=== PATIENT | female | born 1975 | race Caucasian/White ===

== ENCOUNTER 2017-08-05 05:17 | Emergency (ER) | payer SELFPAY ==
[~2017-08-05] VITALS: Ht 165.1 cm; Wt 90.7 kg
[~2017-08-05 05:17] MED LIST: ACHD5005 PO; ALPR1T PO; CAPT25TA3 PO; CYCL10TA9 PO; HCT25T PO; HYDR1TAB PO; LISI10TA PO; LVT.025T PO; MULT-305 PO; NF-SYM625 PO; OXYC-272 PO
--- NOTE | 2017-08-05 05:53 | ED Psychosocial ---
General Chief Complaint: Psych/Social Disorder Stated Complaint: VOMITING,CORONEL,ANXIETY,RT HIP PAIN,THYROID & BLOOD MT Source: patient Exam Limitations: no limitations History of Present Illness Time seen by provider: 05:35 Initial Comments Here with report of wanting help regarding her addiction problems including ice and marijuana. She reports that she had been in rehabilitation up until and then left 3 haven't moved in with her son. There she found out that he was also using drugs and she began using drugs again. He apparently kicked her out this morning. She arrives by POV without a coat or shoes asking for assistance. She states that she is out of her meds and has not taken her blood pressure or thyroid medicine since . Normally seen at [facility]. She also complains of right hip pain after doing a high kick when she was high and drunk a few months ago. She reports persistent pain since to her right hip and wants to make sure that that is okay. She complains of headache that she states is from her anxiety and crying. Timing/Duration: week, getting worse Severity: moderate, severe Associated Symptoms: anxiety Allergies and Home Medications Allergies Coded Allergies: No Known Drug Allergies (Unverified , 04/18/11) Home Medications Alprazolam 1 Mg Tablet, 1 MG PO QID, (Reported) Alprazolam 1 Mg Tablet, 1 TAB PO TID PRN, #21 Ref 0 Prescribed by: ZOË TELLO on 04/18/111809 Captopril 25 Mg Tablet, 25 MG PO BID, (Reported) Cyclobenzaprine Hcl 10 Mg Tablet, 10 MG PO BID, (Reported) Hydrochlorothiazide 25 Mg Tablet, 25 MG PO DAILY, (Reported) Hydrocodone Bit/Acetaminophen 1 Each Tablet, 1-2 EACH PO Q6H PRN, #48 Ref 0 Prescribed by: ZOË TELLO on 04/18/111809 Hydrocodone Bit/Acetaminophen 1 Each Tablet, 1-2 EACH PO Q4HR PRN, #10 Ref 0 Prescribed by: MICHELLE SÁNCHEZ on 06/24/112219 Levothyroxine Sodium 25 Mcg Tablet, 25 MCG PO DAILY, (Reported) Lisinopril 10 Mg Tablet, 10 MG PO BID, (Reported) Multivits W-Ca,Fe,Other Min 1 Each Tablet, 1 EACH PO DAILY, (Reported) Olanzapine/Fluoxetine Hcl 1 Ea Cap, 1 EA PO DAILY, (Reported) In the evening Oxycodone Hcl/Acetaminophen 1 Tab Tablet, 1 TAB PO QID, (Reported) Constitutional: see HPI, No chills, No fever EENTM: no symptoms reported Respiratory: no symptoms reported Cardiovascular: no symptoms reported Gastrointestinal: no symptoms reported Musculoskeletal: see HPI, joint pain, No muscle pain Psychiatric/Neurological: See HPI, Anxiety, Emotional Problems, Headache Past Oniktju-Hbjwyq-Fwcrgc Hx Patient Social History Alcohol Use: Occasionally Uses Recreational Drug Use: Yes Smoking Status: Current Everyday Smoker Type Used: Cigarettes Recent Foreign Travel: No Contact w/Someone Who Travel: No Surgeries History of Surgeries: Yes Surgeries: Orthopedic, Thyroidectomy Cardiovascular History of Cardiac Disorders: Yes Cardiac Disorders: Hypertension Endocrine History of Endocrine Disorders: Yes Endocrine Disorders: Hypothyroidsim Psychosocial History of Psychiatric Problem: Yes Behavioral Health Disorders: Sleep Difficulties, Anxiety, Depression Reviewed Nursing Assessment Reviewed/Agree w Nursing PMH: Yes Physical Exam Vital Signs Vital Sign - Last 12Hours 08/05/17 05:28 Temp 98.4 Pulse 105 Resp 20 B/P (MAP) 188/100 (129) Pulse Ox 98 O2 Delivery Room Air Capillary Refill : General Appearance: WD/WN, mild distress (anxious and crying) HEENT: PERRL/EOMI, pharynx normal Neck: full range of motion, supple Respiratory: lungs clear, normal breath sounds Cardiovascular: regular rate, rhythm, no murmur Gastrointestinal: non tender, soft Extremities: non-tender, normal inspection, other (normal gait) Neurologic/Psychiatric: alert, oriented x 3 Appearance/Memory: disheveled, other (crying) Behavior/Eye Contact: cooperative, good eye contact, normal speech Thoughts/Hallucinations: normal thought pattern, no apparent hallucination Skin: normal color, warm/dry Progress/Results/Core Measures Results/Orders My Orders Orders - ZOË TELLO MD Pelvis With Right Hip 2-3views (08/05/17 05:47) Lisinopril Tablet (Zestril Tablet) (08/05/17 06:00) Vital Signs/I&O Vital Sign - Last 12Hours 08/05/17 05:28 Temp 98.4 Pulse 105 Resp 20 B/P (MAP) 188/100 (129) Pulse Ox 98 O2 Delivery Room Air Progress Note : Progress Note Seen and evaluated. X-ray of right hip and pelvis ordered. Given information on [facility] addiction treatment services as well as [facility]. Patient stated that she would go there this morning. Lisinopril 10 mg by mouth given. Monitor patient. 0615: No acute fractures or other findings on x-ray. I did discuss the case with Dr. Carolyn Swann. She agrees that the addiction treatment services is perfectly suited to help this patient and is willing to help. Recommended calling at [phone] for same day appointment. I did pass this information along to the patient who was appreciative and states that she will make the call. Further prescriptions to be written by the clinic. Discharged home with return precautions. Patient verbalize understanding instructions and agreement with plan. Diagnostic Imaging Diagonstic Imaging: Xray Plain Films/CT/US/NM/MRI: pelvis, hip Comments Three-view x-ray right hip and pelvis shows no acute fracture or other abnormality. Departure Impression Impression: Primary Impression: Anxiety Additional Impressions: Drug abuse and dependence Right hip pain Disposition: 01 HOME, SELF-CARE Condition: Stable Departure-Patient Inst. Decision time for Depature: 06:20 Referrals: NO,LOCAL PHYSICIAN (PCP/Family) Primary Care Physician Patient Instructions: ALCOHOL AND SUBSTANCE ABUSE, Anxiety, Adult (DC), Hip Pain (DC) Add. Discharge Instructions: All discharge instructions reviewed with patient and/or family. Voiced understanding. Call the [facility] at the number given for same day appointment in the addiction treatment services. They are ready and willing to help you and I highly encouraged and asked that you make that call and go to the clinic today. Return for other concerns as needed. Copy Copies To 1: CAROLYN SWANN MD, TIMOTHY D MD Aug 05, 2017 05:53
[2017-08-05] MEDS: lisINopril 10 MG (PRINIVIL) TAB PO ONE (06:20)
[2017-08-05 06:33] VITALS: BP 188/100
--- NOTE | 2017-08-05 08:02 | Diagnostic Imaging Report ---
INDICATION: Right hip pain COMPARISON: None. FINDINGS: AP view of the pelvis and 2 dedicated radiographic views of the right hip were obtained. Postsurgical changes of previous lumbosacral fusion are noted. There is no fracture, dislocation, bone destruction, or radiopaque foreign body. The visualized pelvic osseous structures and the SI joints demonstrate no acute fracture or dislocation. There is no bone destruction or radiopaque foreign body. The surrounding soft tissue structures are unremarkable. IMPRESSION: 1. Unremarkable radiographic exam of the pelvis and right hip. Dictated by: Dictated on workstation # [id number]
== END 2017-08-05 06:33 | disposition home or self-care (01) ==
LOC: EDUNIT# 05:17 → ER 05:22
DX: F41.9 Anxiety disorder, unspecified (principal); F15.20 Other stimulant dependence, uncomplicated; M25.551 Pain in right hip; I10 Essential (primary) hypertension; E03.9 Hypothyroidism, unspecified; F32.9 Major depressive disorder, single episode, unspecified; F17.210 Nicotine dependence, cigarettes, uncomplicated; Z90.89 Acquired absence of other organs
CPT/HCPCS: 99283

== ENCOUNTER 2023-02-02 11:33 | Emergency (ER) | payer OTHER ==
[2023-02-02] MEDS ORDERED: NS IV 1000 ML 1,000 ML IV STA ×2 (11:39→12:56)
--- NOTE | 2023-02-02 11:43 | ED General ---
General Chief Complaint: General Problems/Pain Stated Complaint: DIZZINESS Nursing Triage Note: PT TO RM 2 BY EMS WITH CC OF DIZZINESS, LH, BODYACHES, VISIOIN CHANGES, AND CORONEL SINCE THIS AM AT WORK. PT STATES HAS BEEN SICK. Source of Information: Patient Exam Limitations: No Limitations (PAULA BILL) History of Present Illness Date Seen by Provider: Feb 02, 2023 Time Seen by Provider: 11:41 Initial Comments Patient is a 48-year-old female who presents the ED by EMS for multiple complaints. Body aches, chills, weakness, dizziness, lightheadedness since last . She reports feeling feverish. She states she gets dizzy with walking as well as lightheaded. Bilateral ear ringing. Patient states today she was at work when she felt like she was going to pass out. Nausea without vomiting. Few episodes of diarrhea. She called EMS at that time. She works at [employer]. She also reports a frontal headache that started today described as pressure. Blurry vision since this morning. Denies of any unilateral weakness or sensory changes. She states she does feel weak throughout. Denies any specific chest pain, shortness of breath, cough. She has been having some intermittent right- sided abdominal pain over the past 3 to 4 days. No current pain at this time. No pain with urination. Denies history of coronary artery disease, CHF, asthma, diabetes, hypertension. She denies of any neck pain, hearing loss (PAULA BILL) Allergies and Home Medications Allergies Coded Allergies: No Known Drug Allergies (Unverified , 04/18/11) Patient Home Medication List Home Medication List Reviewed: Yes (PAULA BILL) Alprazolam (Xanax) 1 Mg Tablet, 1 MG PO QID, (Reported) Entered as Reported by: LIANA PATINO on 04/18/11 1444 Alprazolam (Xanax) 1 Mg Tablet, 1 TAB PO TID PRN Prescribed by: ZOË TELLO on 04/18/111809 Captopril (Capoten) 25 Mg Tablet, 25 MG PO BID, (Reported) Entered as Reported by: LIANA PATINO on 04/18/11 1444 Cyclobenzaprine Hcl (Cyclobenzaprine Hcl) 10 Mg Tablet, 10 MG PO BID, (Reported) Entered as Reported by: LIANA PATINO on 04/18/11 144 Hydrochlorothiazide (Hydrochlorothiazide) 25 Mg Tablet, 25 MG PO DAILY, (Reported) Entered as Reported by: LIANA PATINO on 04/18/11 144 Hydrocodone Bit/Acetaminophen (Lortab 5 Mg Tablet) 1 Each Tablet, 1-2 EACH PO Q6H PRN Prescribed by: ZOË TELLO on 04/18/11 1810 Hydrocodone Bit/Acetaminophen (Vicodin 5-500 Tablet) 1 Each Tablet, 1-2 EACH PO Q4HR PRN Prescribed by: MICHELLE SÁNCHEZ on 06/24/11 2220 Levothyroxine Sodium (Levothyroxine 25 Mcg Tab) 25 Mcg Tablet, 25 MCG PO DAILY, (Reported) Entered as Reported by: LIANA PATINO on 04/18/11 144 Lisinopril (Zestril) 10 Mg Tablet, 10 MG PO BID, (Reported) Entered as Reported by: LIANA PATINO on 04/18/11 144 Multivits W-Ca,Fe,Other Min (Women's Daily Multivitamin) 1 Each Tablet, 1 EACH PO DAILY, (Reported) Entered as Reported by: LIANA PATINO on 04/18/11 144 Olanzapine/Fluoxetine Hcl (Symbyax 01/31 Caps) 1 Ea Cap, 1 EA PO DAILY, (Repo rted) Entered as Reported by: LIANA PATINO on 04/18/111443 Ondansetron (Ondansetron Odt) 4 Mg Tab.rapdis, 4 MG SL Q4H PRN for NAUSEA/VOMITING Prescribed by: SERGIO SILVERIO on 02/02/23 1405 Oxycodone Hcl/Acetaminophen (Percocet 10-325 Mg Tablet) 1 Tab Tablet, 1 TAB PO QID, (Reported) Entered as Reported by: LIANA PATINO on 04/18/11 144 Review of Systems Review of Systems Constitutional: chills; No diaphoresis; dizziness, fever, malaise, weakness EENTM: blurred vision; No hearing loss Respiratory: No cough Cardiovascular: No chest pain Gastrointestinal: abdominal pain; No diarrhea, No nausea, No vomiting Genitourinary: No decreased output, No discharge, No dysuria, No frequency Musculoskeletal: No back pain, No joint pain Skin: No change in color, No change in hair/nails (PAULA BILL) All Other Systems Reviewed Negative Unless Noted: Yes (PAULA BILL) Past Fschkjp-Xffvdo-Bqyfte Hx Patient Social History Tobacco Use?: Yes Substance use?: No Alcohol Use?: No Pt feels they are or have been: No (PAULA BILL) Immunizations Up To Date Influenza Vaccine Up-to-Date: No; Not Current (PAULA BILL) Past Medical History Surgeries: Yes Orthopedic, Thyroidectomy Cardiac: Yes Hypertension Endocrine: Yes Hypothyroidsim Psychosocial: Yes Sleep Difficulties, Anxiety, Depression (PAULA BILL) Physical Exam Vital Signs Vital Signs - First Documented 02/02/23 11:33 Temp 35.6 Pulse 95 Resp 18 B/P (MAP) 97/69 (78) Pulse Ox 97 O2 Delivery Room Air (MYRIAM MARADIAGA MD) Vital Signs Capillary Refill : Less Than 3 Seconds (PAULA BILL) Height, Weight, BMI Height: 5'5.00" Weight: 200lbs. 0oz. 90.799856aq; BMI Method:Stated General Appearance: No Apparent Distress, WD/WN Eyes: Bilateral Eye Normal Inspection, Bilateral Eye PERRL, Bilateral Eye EOMI HEENT: PERRL/EOMI, TMs Normal, Normal ENT Inspection, Pharynx Normal Neck: Full Range of Motion, Normal Inspection, Non Tender, Supple Respiratory: Chest Non Tender, Lungs Clear, Normal Breath Sounds, No Accessory Muscle Use, No Respiratory Distress Cardiovascular: Regular Rate, Rhythm, No Edema, No Gallop, No JVD, No Murmur Gastrointestinal: Normal Bowel Sounds, No Organomegaly, No Pulsatile Mass, Non Tender Back: Normal Inspection, No CVA Tenderness, No Vertebral Tenderness Extremity: Normal Capillary Refill, Normal Inspection, Normal Range of Motion, Non Tender Neurologic/Psychiatric: Alert, Oriented x3, No Motor/Sensory Deficits, Normal Mood/Affect Skin: Normal Color, Warm/Dry (PAULA BILL) Progress/Results/Core Measures Suspected Sepsis SIRS Temperature: Pulse: 95 Respiratory Rate: 18 Laboratory Tests 02/02/23 11:45: White Blood Count 11.2H Blood Pressure 97 /69 Mean: 78 Laboratory Tests 02/02/23 11:45: Creatinine 1.57H, Platelet Count 464H, Total Bilirubin 0.4 (PAULA BILL) Results/Orders Lab Results Laboratory Tests Test 02/02/23 11:45 02/02/23 11:50 Range/Units White Blood Count 11.2 H 4.3-11.0 10^3/uL Red Blood Count 4.96 3.80-5.11 10^6/uL Hemoglobin 14.9 11.5-16.0 g/dL Hematocrit 46 35-52 % Mean Corpuscular Volume 92 80-99 fL Mean Corpuscular Hemoglobin 30 25-34 pg Mean Corpuscular Hemoglobin Concent 33 32-36 g/dL Red Cell Distribution Width 11.9 10.0-14.5 % Platelet Count 464 H 130-400 10^3/uL Mean Platelet Volume 9.9 9.0-12.2 fL Immature Granulocyte % (Auto) 0 % Neutrophils (%) (Auto) 78 H 42-75 % Lymphocytes (%) (Auto) 15 12-44 % Monocytes (%) (Auto) 5 0-12 % Eosinophils (%) (Auto) 1 0-10 % Basophils (%) (Auto) 1 0-10 % Neutrophils # (Auto) 8.7 H 1.8-7.8 10^3/uL Lymphocytes # (Auto) 1.7 1.0-4.0 10^3/uL Monocytes # (Auto) 0.6 0.0-1.0 10^3/uL Eosinophils # (Auto) 0.1 0.0-0.3 10^3/uL Basophils # (Auto) 0.1 0.0-0.1 10^3/uL Immature Granulocyte # (Auto) 0.1 0.0-0.1 10^3/uL Sodium Level 139 135-145 MMOL/L Potassium Level 3.5 L 3.6-5.0 MMOL/L Chloride Level 100 98-107 MMOL/L Carbon Dioxide Level 25 21-32 MMOL/L Anion Gap 14 5-14 MMOL/L Blood Urea Nitrogen 17 7-18 MG/DL Creatinine 1.57 H 0.60-1.30 MG/DL Estimat Glomerular Filtration Rate 40 BUN/Creatinine Ratio 11 Glucose Level 94 70-105 MG/DL Calcium Level 9.3 8.5-10.1 MG/DL Corrected Calcium 9.0 8.5-10.1 MG/DL Magnesium Level 2.2 1.6-2.4 MG/DL Total Bilirubin 0.4 0.1-1.0 MG/DL Aspartate Amino Transf (AST/SGOT) 20 5-34 U/L Alanine Aminotransferase (ALT/SGPT) 14 0-55 U/L Alkaline Phosphatase 84 40-136 U/L Troponin I < 0.028 <0.028 NG/ML Total Protein 7.7 6.4-8.2 GM/DL Albumin 4.4 3.2-4.5 GM/DL Lipase 20 8-78 U/L Influenza Type A (RT-PCR) Not Detected Not Detecte Influenza Type B (RT-PCR) Not Detected Not Detecte SARS-CoV-2 RNA (RT-PCR) Not Detected Not Detecte Urine Color YELLOW Urine Clarity CLEAR Urine pH 5.5 5-9 Urine Specific [place] >=1.030 1.016-1.022 Urine Protein 1+ H NEGATIVE Urine Glucose (UA) NEGATIVE NEGATIVE Urine Ketones TRACE H NEGATIVE Urine Nitrite NEGATIVE NEGATIVE Urine Bilirubin 1+ H NEGATIVE Urine Urobilinogen 1.0 < = 1.0 MG/DL Urine Leukocyte Esterase TRACE H NEGATIVE Urine RBC (Auto) NEGATIVE NEGATIVE Urine RBC NONE /HPF Urine WBC 2-5 /HPF Urine Squamous Epithelial Cells 2-5 /HPF Urine Crystals PRESENT H /LPF Urine Amorphous Sediment RARE JEFFREY URATES H /LPF Urine Bacteria FEW H /HPF Urine Casts NONE /LPF Urine Mucus NEGATIVE /LPF Urine Culture Indicated YES (MYRIAM MARADIAGA MD) Medications Given in ED Current Medications Medications Dose Ordered Sig/Kamla Route Start Time Stop Time Status Last Admin Dose Admin Ketorolac Tromethamine 30 mg ONCE ONCE IVP 02/02/23 13:45 02/02/23 13:46 DC 02/02/23 13:41 30 MG Ondansetron HCl 4 mg ONCE ONCE IVP 02/02/23 11:45 02/02/23 11:46 DC 02/02/23 11:51 4 MG (MYRIAM MARADIAGA MD) Vital Signs/I&O 02/02/23 02/02/23 02/02/23 11:33 14:00 14:22 Temp 35.6 Pulse 95 72 75 74 84 Resp 18 18 B/P (MAP) 97/69 (78) 113/74 (87) 117/79 117/72 (87) 115/78 (90) Pulse Ox 97 96 O2 Delivery Room Air Room Air (MYRIAM MARADIAGA MD) Vital Signs/I&O Capillary Refill : Less Than 3 Seconds (PAULA BILL) Blood Pressure Mean: 78 ECG Comment Sinus rhythm, 89 bpm, QRS duration 85 MS, QTc 428 MS. (PAULA BILL) Departure Communication (PCP) Reviewed previous ER visits, H&P, lab testing. Differential diagnosis of viral syndrome, vertigo, arrhythmia, stroke. Patient on arrival complaining of lightheadedness and dizziness, blurry vision and flulike symptoms. She was hypotensive blood pressure in the 90s systolic. Concerning for dehydration. Patient was started on a liter of fluid. EKG, general lab work, orthostatics, CT scan of the head. CT scan of the head was negative for bleed, mass. EKG showed normal sinus rhythm. She was afebrile. She had no meningeal signs. CBC showed white blood count 11.2. Creatinine of 1.57 GFR 40. Concerning for acute kidney insufficiency secondary to dehydration. She did reports some diarrhea. No vomiting. She did receive Zofran for nausea. Toradol for headache. She had no evidence of nystagmus on Kaelyn-Hallpike. Urinalysis without evidence of infection. Positive for proteins, ketones, high concentration. She did receive 1 L of fluid. Attempted to start a second liter of fluid but she refused. She was not orthostatic hypotensive. She had no neurological deficits. COVID influenza was ordered which was negative. Suspect that this is likely viral with secondary dehydration resulting in near syncope. Recommend continue hydration. Provided work note. Discussed Pedialyte. Zofran for nausea. If any worsening symptoms to return back to ED. Follow-up your PCP in 2 to 3 days for reevaluation. No known cardiac history. She does not appear toxic. Stable vital signs at discharge. Improvement of blood pressure after fluids. (PAULA BILL) Impression Primary Impression: Weakness with dizziness Disposition: 01 HOME, SELF-CARE Condition: Stable Departure-Patient Inst. Decision time for Depature: 14:03 (PAULA BILL) Referrals: [facility] NO,LOCAL PHYSICIAN (PCP) Primary Care Physician Patient Instructions: Generalized Weakness (DC), Dizziness, Adult ED Scripts Ondansetron (Ondansetron Odt) 4 Mg Tab.rapdis 4 MG SL Q4H PRN for NAUSEA/VOMITING, #6 TAB Prov: PAULA BILL 02/02/23 Work/School Note: Work Release Form Return to Work: Feb 05, 2023 ATTENDING PHYSICIAN NOTE: I was physically present as attending physician in the emergency department during the care of this patient, but I was not directly involved in the decision making or delivery of care for this patient. (MYRIAM MARADIAGA MD) PAULA BILL Feb 02, 2023 11:43 MYRIAM MARADIAGA MD Feb 02, 2023 20:49
[2023-02-02] MEDS ORDERED: ONDANSETRON 4 MG/2 ML (SDV) Z0FRAN IVP ONE (11:45)
[2023-02-02 11:51] LABS: BASOPHILS # (AUTO) 0.1 10^3/uL (0.0-0.1); BASOPHILS % (AUTO) 1 % (0-10); EOSINOPHILS # (AUTO) 0.1 10^3/uL (0.0-0.3); EOSINOPHILS % (AUTO) 1 % (0-10); HEMATOCRIT 46 % (35-52); HEMOGLOBIN 14.9 g/dL (11.5-16.0); LYMPHOCYTES # (AUTO) 1.7 10^3/uL (1.0-4.0); LYMPHOCYTES % (AUTO) 15 % (12-44); MEAN CORPUSCULAR HEMOGLOBIN 30 pg (25-34); MEAN CORPUSCULAR HGB CONC 33 g/dL (32-36); MEAN CORPUSCULAR VOLUME 92 fL (80-99); MEAN PLATELET VOLUME 9.9 fL (9.0-12.2); MONOCYTES # (AUTO) 0.6 10^3/uL (0.0-1.0); MONOCYTES % (AUTO) 5 % (0-12); NEUTROPHILS # (AUTO) 8.7 10^3/uL (1.8-7.8); NEUTROPHILS % (AUTO) 78 % (42-75); PLATELET COUNT 464 10^3/uL (130-400); WHITE BLOOD COUNT 11.2 10^3/uL (4.3-11.0)
[2023-02-02 11:59] LABS: CLARITY,URINE CLEAR; COLOR,URINE YELLOW; GLUCOSE, URINE (UA) NEGATIVE (NEGATIVE); KETONES,URINE TRACE (NEGATIVE); LEUKOCYTE ESTERASE ,URINE TRACE (NEGATIVE); NITRITE,URINE NEGATIVE (NEGATIVE); PH,URINE 5.5 (5-9); PROTEIN,URINE 1+ (NEGATIVE)
[2023-02-02 12:02] LABS: ALBUMIN 4.4 GM/DL (3.2-4.5); CHLORIDE 100 MMOL/L (98-107); POTASSIUM 3.5 MMOL/L (3.6-5.0); SODIUM 139 MMOL/L (135-145)
[2023-02-02 12:04] LABS: CALCIUM 9.3 MG/DL (8.5-10.1)
[2023-02-02 12:05] LABS: GLUCOSE 94 MG/DL (70-105); TOTAL PROTEIN 7.7 GM/DL (6.4-8.2)
[2023-02-02 12:06] LABS: CARBON DIOXIDE 25 MMOL/L (21-32)
[2023-02-02 12:07] LABS: BILIRUBIN,TOTAL 0.4 MG/DL (0.1-1.0)
[2023-02-02 12:08] LABS: ALKALINE PHOSPHATASE 84 U/L (40-136); CREATININE SERUM 1.57 MG/DL (0.60-1.30); GFR ESTIMATED 40
[2023-02-02 12:09] LABS: BUN/CREATININE RATIO 11
[2023-02-02 12:11] LABS: ALANINE AMINOTRANSFERASE 14 U/L (0-55); MAGNESIUM 2.2 MG/DL (1.6-2.4)
[2023-02-02 12:12] LABS: LIPASE 20 U/L (8-78)
[2023-02-02 12:14] LABS: AMORPHOUS SEDIMENT,UR RARE AMOR URATES /LPF; BACTERIA,URINE FEW /HPF; BILIRUBIN,URINE 1+ (NEGATIVE)
--- NOTE | 2023-02-02 12:31 | Diagnostic Imaging Report ---
PROCEDURE: CT head without contrast. TECHNIQUE: Multiple contiguous axial images were obtained through the brain without the use of intravenous contrast. Auto Exposure Controls were utilized during the CT exam to meet ALARA standards for radiation dose reduction. INDICATION: Dizziness COMPARISON: None. FINDINGS: The brain parenchyma is normal in attenuation. No intra- or extra-axial mass or fluid collection. No acute hemorrhage. The ventricles are normal in size, shape, and morphology. The cohen-white matter junction is normal. The subarachnoid cisterns are patent. The visualized paranasal sinuses are normal. The visualized portions of the orbits and globes are normal. The mastoid air cells are clear. The bow maker machine tender topogram shows no lytic lesion or fracture. Impression: No acute intracranial process. Dictated by: Dictated on workstation # [id number]
[2023-02-02] MEDS ORDERED: KETOROLAC 30 MG/ML VIAL IVP ONE (13:45)
[2023-02-02 14:00] VITALS: BP_SYST 113; BP_SYST 115; BP_SYST 117; BP_DIAS 72; BP_DIAS 74; BP_DIAS 78
[2023-02-02] MEDS ORDERED: ONDA4TAB11 SL (14:05)
[2023-02-02 14:22] VITALS: BP 117/79
== END 2023-02-02 14:22 | disposition home or self-care (01) ==
LOC: EDUNIT# 11:33 → ER 11:34
DX: R42 Dizziness and giddiness (principal); R53.1 Weakness; I95.9 Hypotension, unspecified; R19.7 Diarrhea, unspecified; R11.0 Nausea; Z20.822 Contact with and (suspected) exposure to COVID-19; Z28.310 Unvaccinated for COVID-19
CPT/HCPCS: 36415; 70450; 80053; 81000; 83690; 83735; 84484; 85025; 87088; 87636; 93005